=== PATIENT | female | born 1970 | race Caucasian/White ===

== ENCOUNTER 2019-09-27 18:03 | Emergency (ER) | payer MEDICAID, OTHER ==
[~2019-09-27] VITALS: Ht 160 cm; Wt 59.7 kg
[~2019-09-27 18:03] MED LIST: ALBU18HF; BECL8.7A7; IBUP-1223; SERT25TA3
[2019-09-27] MEDS ORDERED: DIAZEPAM 5 MG TABLET ONE (19:58)
[2019-09-27] MEDS ORDERED: KETOROLAC 30 MG/1 ML ONE (19:58)
[2019-09-27] MEDS ORDERED: OXYcodone/APAP 5/325MG TABLET ONE (19:58)
[2019-09-27] MEDS ORDERED: DIAZEPAM 5 MG TABLET PO ONE (20:00)
[2019-09-27] MEDS ORDERED: KETOROLAC 30 MG/1 ML IM ONE (20:00)
[2019-09-27] MEDS ORDERED: OXYcodone/APAP 5/325MG TABLET PO ONE (20:00)
[2019-09-27] MEDS ORDERED: LIDODERM 5% PATCH TD ONE ×2 (21:30→21:31)
[2019-09-27 21:44] VITALS: BP 129/71
== END 2019-09-27 21:46 | disposition home or self-care (01) ==
LOC: ED 21:40
DX: S39.012A Strain of muscle, fascia and tendon of lower back, initial encounter (principal); S16.1XXA Strain of muscle, fascia and tendon at neck level, initial encounter; W18.39XA Other fall on same level, initial encounter; Y93.89 Activity, other specified; Y92.89 Other specified places as the place of occurrence of the external cause; Y99.8 Other external cause status
CPT/HCPCS: 72110; 72190; 72220; 96372; 99284; J1885